=== PATIENT | male | born 1990 | race Caucasian/White ===

== ENCOUNTER → 2017-02-01 06:35 | Outpatient (CLI) | payer OTHER ==
[~2017-02-01 06:35] MED LIST: ACETAMINOPHEN325 MG; HYDROCODONE-APA1 TAB PO; MOBIC7.5 MG PO; NAPROXEN250 MG PO
[2017-03-03 06:23] VITALS: BMI 28.1
== END ==
LOC: D.MRI 06:35
DX: S89.91XA Unspecified injury of right lower leg, initial encounter (principal); V89.2XXA Person injured in unspecified motor-vehicle accident, traffic, initial encounter

== ENCOUNTER 2017-03-03 05:25 | Day surgery (SDC) | payer OTHER ==
[2017-03-03] MEDS ORDERED: NAPROXEN250 MG PO (06:18)
[2017-03-03] MEDS ORDERED: ACETAMINOPHEN325 MG (06:18)
[2017-03-03] MEDS ORDERED: MOBIC7.5 MG PO (06:19)
[2017-03-03] MEDS ORDERED: HYDROCODONE-APA1 TAB PO (08:07)
== END 2017-03-03 09:45 | disposition home or self-care (01) ==
LOC: D.OPS 05:25
DX: S83.281A Other tear of lateral meniscus, current injury, right knee, initial encounter (principal)